=== PATIENT | female | born 1995 | race Caucasian/White ===

== ENCOUNTER 2018-03-27 13:08 | Emergency (ER) | END 2018-03-27 15:05 | disposition home or self-care (01) ==

== ENCOUNTER 2018-08-08 12:34 | Emergency (ER) | payer BC ==
[~2018-08-08] VITALS: Ht 152.4 cm; Wt 48.2 kg
[~2018-08-08 12:34] MED LIST: IBUP-1561 PO; RANI150T35 PO
[2018-08-08 12:44] VITALS: BP 108/67; PULSE 82; RESP 20; Ht 152.4 cm; Wt 48.2 kg
[2018-08-08] MEDS ORDERED: POLY17PO6 PO (14:26)
[2018-08-08] MEDS ORDERED: ALBE200T PO (14:26)
--- NOTE | 2018-08-08 14:30 | ERD ---
ER Documentation Chief Complaint Chief Complaint itch to anus x3mo; no relief w hydrocortisone. denies hemorrhoid. HPI This is a 22-year-old female with a nonsignificant past medical history presents ED with complaints of anal itching times 3 months. Patient states the anal itching is worse at night around 2 AM. 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 Patient states that she seen her primary care physician for this complaint and she was prescribed hydrocortisone but she is not seeing much relief. Patient admits to some constipation. Denies abdominal pain, nausea, vomiting, hematemesis, hemoptysis, diarrhea, melena, hematochezia and all other symptoms. ROS All systems reviewed and are negative except as per history of present illness. Medications Home Meds Active Scripts Polyethylene Glycol* (Miralax*) 17 Gm Powd.pack, 17 GM PO DAILY, #7 Prov:BONITA BENAVIDES PA-C 08/08/18 Albendazole* (Albenza*) 200 Mg Tab, 400 MG PO ONCE, #2 TAB Prov:BONITA BENAVIDES PA-C 08/08/18 Ranitidine Hcl* (Zantac*) 150 Mg Tablet, 150 MG PO BID PRN for EPIGASTRIC PAIN, #20 TAB Prov:SONAM BUENROSTRO MD 03/27/18 Ibuprofen* (Motrin*) 400 Mg Tab, 400 MG PO Q8, #20 TAB Prov:SONAM BUENROSTRO MD 03/27/18 Allergies Allergies: Coded Allergies: No Known Allergy (Unverified , 08/08/18) PMhx/Soc History of Surgery: Yes (RHINOPLASTY) Hx Alcohol Use: No Hx Substance Use: No Hx Tobacco Use: No FmHx Family History: No diabetes Physical Exam Vitals Vital Signs Date Temp Pulse Resp B/P (MAP) Pulse Ox O2 O2 Flow FiO2 Time Delivery Rate 08/08/18 99.0 82 20 108/67 97 12:44 (81) Physical Exam Const: No acute distress Head: Atraumatic Eyes: Normal Conjunctiva ENT: Normal External Ears, Nose and Mouth. Neck: Full range of motion. No meningismus. Resp: Clear to auscultation bilaterally Cardio: Regular rate and rhythm, no murmurs Abd: Soft, non tender, non distended. Normal bowel sounds Psych: Normal Mood and Affect Procedures/MDM ER COURSE: The patient was stable throughout ED course. I kept the patient and/or family informed of laboratory and diagnostic imaging results throughout the emergency room course. The patient was promptly evaluated and a treatment plan was devised based on H&P and other data. This plan was discussed with the patient who agreed and had no further questions or concerns prior to discharge. MEDICAL DECISION MAKING: This is a 22-year-old female presents ED with complaints of anal itching times 3 months. Patient works with young children and states that the pain is worse at night around 2 in the morning. Given patient's history this likely could be pinworms. Will treat patient for pinworms. Also discussed with patient that she needs to have good hygiene, and use moist pads or tissue to wipe after bowel movement. At this time there is no gastrointestinal emergency. No evidence of appendicitis, perforated viscus, small bowel obstruction, cholecystitis or pancreatitis. Vitals are stable patient can be managed close outpatient follow- up. Advised patient follow-up with her primary care in the next 48 hours as wel l as see specialist if anal itching continues. Return to ED with any worsening symptoms DISPOSITION PLAN: We discussed follow up with the patient's primary care doctor within 24 to 48 hours. Patient counseled regarding my diagnostic impression and care plan. Prior to discharge all questions answered. Pt agrees with treatment plan and understands strict return precautions. Precautionary instructions provided including instructions to return to the ER if not improving or for any worsening or changing symptoms or concerns. ExitCare instructions provided. Prior to discharge, patients vital signs have been reviewed SPECIALIST FOLLOW UP RECOMMENDED: None Patient has been advised to follow up with primary care in 1-2 days. Disclaimer: Inadvertent spelling and grammatical errors are likely due to EHR/dictation software use and do not reflect on the overall quality of patient care. Also, please note that the electronic time recorded on this note does not necessarily reflect the actual time of the patient encounter. Departure Diagnosis: Primary Impression: Anal itching Additional Impression: Constipation Constipation type: unspecified constipation type Qualified Codes: K59.00 - Constipation, unspecified Condition: Stable Patient Instructions: Pinworm Infection, Constipation (Adult), Pruritis Ani (Anal Itching) Referrals: JASMIN LUCIA MD,VELIA BERRY MD, MD,ANNEMARVIN MERCADO MD, MD [facility] YOU HAVE RECEIVED A MEDICAL SCREENING EXAM AND THE RESULTS INDICATE THAT YOU DO NOT HAVE A CONDITION THAT REQUIRES URGENT TREATMENT IN THE EMERGENCY DEPARTMENT. FURTHER EVALUATION AND TREATMENT OF YOUR CONDITION CAN WAIT UNTIL YOU ARE SEEN IN YOUR DOCTORS OFFICE WITHIN THE NEXT 1-2 DAYS. IT IS YOUR RESPONSIBILITY TO MAKE AN APPOINTMENT FOR FOLOW-UP CARE. IF YOU HAVE A PRIMARY DOCTOR --you should call your primary doctor and schedule an appointment IF YOU DO NOT HAVE A PRIMARY DOCTOR YOU CAN CALL OUR PHYSICIAN REFERRAL HOTLINE AT IF YOU CAN NOT AFFORD TO SEE A PHYSICIAN YOU CAN CHOSE FROM THE FOLLOWING [facility] [address] [facility] [address] [facility] [facility] [address] [facility] [address] [facility] [address] [facility] [address] [facility]. [facility] [address] Additional Instructions: Patient advised to return to the ED immediately for new or worsening symptoms. Patient advised to follow up with primary care provider in the next 24-48 hours. Patient verbalized understanding and agrees with treatment plan and course of action. If patient has no primary care they may follow up with one of the [facility] listed on the following page or one of the options listed below [facility] [address] [place] [address] or [facility] [address] [place] [address] or [facility] [address] [place] [address] BONITA BENAVIDES PA-C Aug 08, 2018 14:30
== END 2018-08-08 14:35 | disposition home or self-care (01) ==
LOC: FTE 12:34
DX: L29.0 Pruritus ani (principal); K59.00 Constipation, unspecified
CPT/HCPCS: 99283

== ENCOUNTER 2018-09-15 11:42 | Emergency (ER) | payer BC ==
[~2018-09-15] VITALS: Wt 50.0 kg
[~2018-09-15 11:42] MED LIST changes: +ALBE200T PO; +POLY17PO6 PO
[2018-09-15 11:49] VITALS: BP 115/57; PULSE 57; RESP 18
[2018-09-15] MEDS: DIAZEPAM 5 MG TAB PO ONE ×2 (12:38→12:40)
[2018-09-15] MEDS: KETOROLAC 60 MG INJ IM STA ×2 (12:38→12:43)
[2018-09-15] MEDS ORDERED: IBUPROFEN 800 MG TAB PO ONE (13:00)
[2018-09-15] MEDS ORDERED: HYDR-4011 PO (13:42)
[2018-09-15] MEDS ORDERED: NAPR-985 PO (13:42)
[2018-09-15] MEDS ORDERED: CYCL10TA7 PO (13:42)
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
== END 2018-09-15 14:01 | disposition home or self-care (01) ==
LOC: FTE 11:42
DX: M54.9 Dorsalgia, unspecified (principal)
CPT/HCPCS: 72072; 72100; 81025; J1885; Z7502; Z7610